=== PATIENT | male | born 1980 | race Caucasian/White ===

== ENCOUNTER 2017-08-15 05:55 | Day surgery (SDC) | payer OTHER ==
[~2017-08-15] VITALS: Ht 185.4 cm; Wt 129.3 kg
[~2017-08-15 05:55] MED LIST: NOHOMEMEDS; PERCOCET 5/31 TABLET PO; SUBUTEX8 MG SL; TYLENOL EXTRA500 MG PO; ZOFRAN ODT4 MG PO
[2017-08-15 06:55] VITALS: BP 143/76
[2017-08-15 10:00] VITALS: BP 147/87
[2017-08-15 10:51] VITALS: BP 157/89
== END 2017-08-15 10:55 | disposition home or self-care (01) ==
LOC: SDC
PROVIDERS: Urology
DX: N20.2 Calculus of kidney with calculus of ureter (principal); I10 Essential (primary) hypertension; F17.210 Nicotine dependence, cigarettes, uncomplicated; F13.11 Sedative, hypnotic or anxiolytic abuse, in remission; F15.11 Other stimulant abuse, in remission; Z82.49 Family history of ischemic heart disease and other diseases of the circulatory system; Z83.3 Family history of diabetes mellitus
CPT/HCPCS: 74420; 82365 90; C1894; C2625; J0330; J0696; J1100; J1885; J2250; J2405; J3010